=== PATIENT | male | born 1955 | race Caucasian/White ===

== ENCOUNTER 2018-12-19 06:13 | Day surgery (SDC) | payer BC ==
[2018-12-17 13:44] VITALS: BMI 34.8
[2018-12-19] MEDS: CIPROFLOXACIN 0.3% EYE DROPS 5 ML BOTTLE ONE ×3 (07:00→07:10)
[2018-12-19] MEDS: PHENYLEPHRINE 2.5% OPHTH SOLN 15 ML BOTTLE ONE ×3 (07:00→07:10)
[2018-12-19] MEDS: CYCLOPENTOLATE 2% OPHTH SOLN 2 ML BOTTLE ONE ×3 (07:00→07:10)
[2018-12-19] MEDS: TROPICAMIDE 1% OPHTH SOLN 15 ML BOTTLE ONE ×3 (07:00→07:10)
[2018-12-19] MEDS ORDERED: EPINEPHrine/PF 1 MG/1 ML (1:1,000) AMPULE ONE (07:08)
[2018-12-19] MEDS ORDERED: LIDOCAINE 1% P/F 10 MG/ML VIAL ONE (07:08)
[2018-12-19] MEDS ORDERED: TETRACAINE 0.5% OPHTH SOLN 2 ML BOTTLE ONE (07:08)
[2018-12-19] MEDS ORDERED: BSS (NA/CA/MG/K) BALANCED SALT SOLUTION OPHTH SOLN 15 ML BOTTLE ONE (07:08)
[2018-12-19] MEDS ORDERED: NEO/POLYMYX B SULF/DEXAMETH OPHTHALMIC 5ML BOTTLE ONE (07:09)
[2018-12-19] MEDS ORDERED: CARBACHOL 0.01% INTRA-OCULAR 1.5 ML VIAL ONE (07:09)
[2018-12-19] MEDS ORDERED: MIDAZOLAM HCL 2 MG/2 ML SINGLE DOSE VIAL ONE ×2 (07:42→08:22)
[2018-12-19 09:03] VITALS: TEMP 98.2
[2018-12-19 09:27] VITALS: BP 156/85; PULSE 68
--- NOTE | 2018-12-19 11:51 | OP ---
DATE OF OPERATION: 12/19/2018 OPERATIVE PROCEDURE: Lens Phacoemulsification with Posterior Chamber Intraocular Lens Placement, Right Eye PREOPERATIVE DIAGNOSIS: Visually Significant Cataract of Right Eye POSTOPERATIVE DIAGNOSIS: Visually Significant Cataract of Right Eye SURGEON: Michael Morales M.D. ANESTHESIA: MAC PROCEDURE: The patient was brought to the operating room and placed under monitored anesthesia care by Anesthesia. A drop of Tetracaine was then placed over the right eye. The patient was then prepped and draped in the usual sterile manner. A speculum was then placed over the right eye. The eye was then well irrigated with copious amounts of BSS (balanced salt solution). The operating microscope was then moved into position. A paracentesis was performed using a 15 degree blade. At this point 0.5 mL of 1% preservative free-lidocaine was injected into the anterior chamber. Amvisc plus was then injected into the anterior chamber. A clear corneal incision was then formed using a 2.2 mm keratome. A capsulorrhexis was then performed in a continuous circular fashion beginning with a cystotome completed with an Utratas forceps. Hydrodissection was then performed using BSS on a cannula. The phaco probe was then introduced through the corneal wound and the cataract was removed using the phaco chop technique. Approximately 3 seconds of absolute phaco time was used. The remaining cortex was then removed using irrigation and aspiration with an I/A probe. The capsule was then filled with regular Amvisc and the capsule was noted to be intact. A previously selected foldable posterior chamber intraocular lens was then injected into the capsule through the corneal wound using a lens injector. It was then dialed into position using a Sinskey hook. The Amvisc was then removed using irrigation and aspiration. Miostat was then injected through the paracentesis to constrict the pupil. The paracentesis and corneal wound were then hydrated and noted to be water tight. A drop of Maxitrol was then placed over the eye. The speculum was removed and clear shield was taped over the eye. The patient tolerated the procedure well and there were no surgical complications. The patient was asked to follow up in my office the next day. MICHAEL MORALES M.D. LENY/[id number]
== END 2018-12-19 09:15 | disposition home or self-care (01) ==
LOC: FASU 06:13
PROVIDERS: ATTEND Ophthalmology
PROC: 08RJ3JZ Replacement of Right Lens with Synthetic Substitute, Percutaneous Approach (ICD-10-PCS; principal; 2018-12-19 08:21)
DX: H26.8 Other specified cataract (principal)

== ENCOUNTER 2019-07-31 14:18 | Inpatient (IN) | payer OTHER, BC ==
[~2019-07-31 14:18] MED LIST: MAGNESIUM SULF 50% (8.12 MEQ/2 ML-1 GM VIAL) IVPB ONE; POTASSIUM CHLORIDE TABS 20 MEQ TABLET.ER (FP) PO STA
[2019-07-31] MEDS ORDERED: SODIUM CHLORIDE 0.9% 1000 ML INFUS.BAG IV ONE (15:09)
[2019-07-31] MEDS ORDERED: FOLIC ACID INJECTION - 1 MG, THIAMINE HCL 100 MG, MULTIVIT INJECTION ADULT 10 ML in SOD... IVPB ONE (15:09)
--- NOTE | 2019-07-31 15:09 | PDOC ---
History of Present Illness - General Chief Complaint: Jaundice Stated Complaint: JAUNDICE History Source: Patient Exam Limitations: No Limitations - History of Present Illness Initial Comments: 07/31/19 15:04 64 yo male h/o etoh abuse, daily etoh use here with c/o nv now jaundice and shakes. pt states he thought he had the flu over the weekend, was evaluated at urgent care for n/v subjective fevers, chills . last etoh was 5 days ago. has been feeling shaky since. today was seen at [facility] doctors office, noted to be jaundice told to go to ed for evaluation. pt stats had n/v 5 days, ago, then developed loose watery stool. all nonbloody no dark or black stools. no h/o of known cirrhosis, however has been told he has fatty liver in the past. no abd pain, no cough. no sick contact. no other complaints. Past History - Past Medical History Allergies/Adverse Reactions: Allergies Allergy/AdvReac Type Severity Reaction Status Date / Time No Known Allergies Allergy Verified 07/31/19 15:59 Home Medications: Ambulatory Orders Atorvastatin Ca [Lipitor] 10 mg PO DAILY 12/17/18 Nebivolol [Bystolic -] 5 mg PO DAILY 12/17/18 Anemia: No Asthma: No Cancer: No Cardiac Disorders: No CVA: No COPD: No CHF: No Dementia: No Diabetes: No GI Disorders: No Disorders: No HTN: Yes Hypercholesterolemia: Yes Liver Disease: No Seizures: No Thyroid Disease: No - Surgical History Abdominal Surgery: No Appendectomy: No Cardiac Surgery: No Cholecystectomy: No Lung Surgery: No Neurologic Surgery: No Orthopedic Surgery: No - Psycho Social/Smoking Cessation Hx Smoking History: Never smoked Have you smoked in the past 12 months: No Hx Alcohol Use: Yes (5 DRINKS) Drug/Substance Use Hx: Yes (MARIJUANA) Substance Use Type: Alcohol Hx Substance Use Treatment: No Review of Systems - Review of Systems Constitutional: Yes: Chills, Fever HEENTM: No: Eye Pain Respiratory: No: Cough Cardiac (ROS): No: Chest Pain, Irregular Heart Rate ABD/GI: Yes: Diarrhea, Nausea, Vomiting : No: Burning Musculoskeletal: No: Back Pain Neurological: No: Headache, Numbness Psychiatric: No: Stressors All Other Systems: Reviewed and Negative *Physical Exam - Vital Signs Last Vital Signs Temp Pulse Resp BP Pulse Ox 99.2 F 123 H 19 115/87 97 07/31/19 14:20 07/31/19 14:20 07/31/19 14:20 07/31/19 14:20 07/31/19 14:20 - Physical Exam 07/31/19 15:07 awake alert lungs clear bilat heart rrr no mrg abd soft nt nd ext wwp. no edema. slceral icterus jaundice. skin warm and dry. ED Treatment Course - LABORATORY CBC & Chemistry Diagram: 07/31/19 15:18 07/31/19 15:18 Medical Decision Making - Medical Decision Making 07/31/19 15:07 64 yo male h/o etoh abuse here with n/v now diarrhea, and jaundice. differential influenzae, etoh withdrawal, tox , pancreatitis, pancreatic ca, gallbladder pathology, however min tenderness on exam. cirrhosis etoh withdrawal. pt tremulous on exam. will given him ativan now treat withdrawal, ct a/p evaluate abd pain pancreatitis. 07/31/19 16:33 pt with new onset afib with RVR, us gb ordered eval for stones, cholecystitis,noted ascites. ct a/p pending. labs unremarkable except LFT abnormalities elevation. 07/31/19 18:48 pt us with gallbladder wall edema. noted to have ascites and fatty liver. ct a/p results pending. lipase elevated at 600. c/w pancreatitis. pt will be admitted etoh withdrawal. sxs improved with ativan 2 mg ivp. pancreatitis afib with RVR which is new,and improved with tylenol and iv hdyration. trop is negative. Discharge - Discharge Information Problems reviewed: Yes Clinical Impression/Diagnosis: Atrial fibrillation with RVR, Alcohol withdrawal, Ascites, Pancreatitis Condition: Stable - Admission Yes - Follow up/Referral - Patient Discharge Instructions - Post Discharge Activity
[2019-07-31] MEDS ORDERED: LORazepam 2 MG/ML SDV VIAL ONE ×2 (15:24→18:06)
[2019-07-31] MEDS ORDERED: THIAMINE HCL 200 MG/2 ML VIAL ONE (15:30)
[2019-07-31] MEDS ORDERED: FOLIC ACID 5 MG/1 ML ONE (15:31)
[2019-07-31] MEDS ORDERED: MULTIVIT INJ. ADULT COMBO WITH VIT K 1 COMBO 10 ML VIAL IV ONE (15:31)
[2019-07-31 15:54] LABS: HEMATOCRIT 37.7 % (35.4-49); HEMOGLOBIN 12.5 GM/dl (11.7-16.9); MCH 33.4 pg (25.7-33.7); MCHC 33.1 g/dl (32.0-35.9); MEAN CELL VOLUME 100.9 fl (80-96); MEAN PLT VOLUME 13.3 fl (7.5-11.1); PLATELET COUNT 73 K/MM3 (134-434); RBC 3.73 M/mm3 (4.00-5.60); RDW 13.7 % (11.9-15.9); WHITE BLOOD COUNT 6.7 K/mm3 (4.0-10.8)
[2019-07-31 15:56] LABS: BILIRUBIN,DIRECT 2.6 mg/dL (0.0-0.2); BILIRUBIN,TOTAL 5.4 mg/dl (0.2-1); CALCIUM 7.8 mg/dl (8.5-10); CREATININE 1.2 mg/dl (0.55-1.3); POTASSIUM 3.3 mmol/L (3.5-5.1); TOT PROT 6.8 g/dl (6.4-8.2)
[2019-07-31 16:02] LABS: ADD RBC MORPHOLOGY YES
[2019-07-31 16:49] LABS: PLATELET ESTIMATE DECREASED
[2019-07-31] MEDS ORDERED: ACETAMINOPHEN 1000 MG/100 ML VIAL (NON FORMULARY) IVPB ONE (17:04)
[2019-07-31] MEDS ORDERED: ACETAMINOPHEN INJECTION 100 ML IVPB ONE (17:13)
--- NOTE | 2019-07-31 18:07 | HP ---
CHIEF COMPLAINT: Alcohol withdrawal PCP: Dr. Lopez, [facility] Cardiology: Dr. Kamara, [place] Psych: Dr. Shant Mahajan [phone] HISTORY OF PRESENT ILLNESS: 64 year-old male with a PMH significant for HLD, atrial fibrillation not on anticoagulation, and heavy alcohol use, presented to the ED with the katie. Last drink was on 07/25. [place] like he had the flu over the weekend with symptoms of subjective fever and chills. Was seen today at PCP, noted to be jaundiced and directed to the [facility]. Over the past 5 days patient has had episodes of vomiting and diarrhea. He noticed blood in the toilet after having a BM on 07/27 , no other episodes. His PO intake has been down lately, but states he has gained 9 pounds over the past 2-3 weeks. He has lower extremity edema, L>R, which was pronounced over the weekend but is better now. Patient feels his belly is very distended, much more than usual. Denies chest pain, palpitations, SOB, RIVERA, lightheadedness. He denies history of withdrawal seizures. 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 Smoking: never Alcohol: 5 drinks of vodka per day; last drink 07/25 Drugs: occasional marijunana Allergies No Known Allergies Allergy (Verified 07/31/19 15:59) HOME MEDICATIONS: Home Medications Medication Instructions Recorded Atorvastatin Ca [Lipitor] 10 mg PO DAILY 12/17/18 Nebivolol [Bystolic -] 5 mg PO DAILY 12/17/18 REVIEW OF SYSTEMS CONSTITUTIONAL: +fever, chills, loss of appetite, up 9 lbs over 2-3 weeks Absent: fever, chills, diaphoresis, generalized weakness, malaise, loss of appetite, weight change HEENT: Absent: rhinorrhea, nasal congestion, throat pain, throat swelling, difficulty swallowing, mouth swelling, ear pain, eye pain, visual changes CARDIOVASCULAR: +peripheral edema Absent: chest pain, syncope, palpitations, irregular heart rate, lightheadedness , peripheral edema RESPIRATORY: Absent: cough, shortness of breath, dyspnea with exertion, orthopnea, wheezing, stridor, hemoptysis GASTROINTESTINAL: +abdominal distension Absent: abdominal pain, abdominal distension, nausea, vomiting, diarrhea, constipation, melena, hematochezia GENITOURINARY: Absent: dysuria, frequency, urgency, hesitancy, hematuria, flank pain, genital pain MUSCULOSKELETAL: Absent: myalgia, arthralgia, joint swelling, back pain, neck pain SKIN: Absent: rash, itching, pallor HEMATOLOGIC/IMMUNOLOGIC: Absent: easy bleeding, easy bruising, lymphadenopathy, frequent infections ENDOCRINE: Absent: unexplained weight gain, unexplained weight loss, heat intolerance, cold intolerance NEUROLOGIC: +tremors, malaise, anxiety Absent: headache, focal weakness or paresthesias, dizziness, unsteady gait, seizure, mental status changes, bladder or bowel incontinence PSYCHIATRIC: Absent: anxiety, depression, suicidal or homicidal ideation, hallucinations. PHYSICAL EXAMINATION Vital Signs - 24 hr 07/31/19 07/31/19 07/31/19 14:20 15:56 17:21 Temperature 99.2 F Pulse Rate 123 H Pulse Rate [ 109 H 91 H Apical] Respiratory 19 18 19 Rate Blood Pressure 115/87 Blood Pressure 110/90 107/89 [Left Arm] O2 Sat by Pulse 97 99 98 Oximetry (%) GENERAL/NEURO: Awake, alert, and fully oriented; +tremors, +asterixis +anxiety EYES: Pupils equal, round and reactive to light, extraocular movements intact, icteric sclera EARS, NOSE, THROAT: Ears normal, nares patent, oropharynx clear without exudates. Dry mucous membranes. LUNGS: Breath sounds equal, clear to auscultation bilaterally. No wheezes, and no crackles. No accessory muscle use. HEART: Irregular, S1, S2 ABDOMEN: Distended, not tender, normoactive bowel sounds MUSCULOSKELETAL: Normal range of motion at all joints. No bony deformities or tenderness. No CVA tenderness. UPPER EXTREMITIES: 2+ pulses, warm, well-perfused. No cyanosis. No clubbing. No peripheral edema. LOWER EXTREMITIES: 2+ pulses, warm, well-perfused. No calf tenderness. 2+ bilateral edema L>R NEUROLOGICAL: Cranial nerves II-XII intact. Normal speech. Laboratory Results - last 24 hr 07/31/19 07/31/19 07/31/19 15:18 15:18 15:18 WBC 6.7 RBC 3.73 L Hgb 12.5 Hct 37.7 MCV 100.9 H MCH 33.4 MCHC 33.1 RDW 13.7 Plt Count 73 L MPV 13.3 H Absolute Neuts (auto) 5.1 Neutrophils % No Result Required. Neutrophils % (Manual) 85.0 H Lymphocytes % No Result Required. Lymphocytes % (Manual) 8.0 Monocytes % (Manual) 7 Platelet Estimate Decreased Platelet Comment Few large platelets Sodium 134 L Potassium 3.3 L Chloride 95 L Carbon Dioxide 25 Anion Gap 14 BUN 36.0 H Creatinine 1.2 Est GFR (CKD-EPI)AfAm 73.11 Est GFR (CKD-EPI)NonAf 63.08 Random Glucose 99 Calcium 7.8 L Total Bilirubin 5.4 H Direct Bilirubin 2.6 H AST 109 H ALT 52 Alkaline Phosphatase 73 Troponin I Total Protein 6.8 Albumin 4.0 Lipase 570 H Alcohol, Quantitative 07/31/19 07/31/19 15:18 16:45 WBC RBC Hgb Hct MCV MCH MCHC RDW Plt Count MPV Absolute Neuts (auto) Neutrophils % Neutrophils % (Manual) Lymphocytes % Lymphocytes % (Manual) Monocytes % (Manual) Platelet Estimate Platelet Comment Sodium Potassium Chloride Carbon Dioxide Anion Gap BUN Creatinine Est GFR (CKD-EPI)AfAm Est GFR (CKD-EPI)NonAf Random Glucose Calcium Total Bilirubin Direct Bilirubin AST ALT Alkaline Phosphatase Troponin I < 0.03 Total Protein Albumin Lipase Alcohol, Quantitative < 3 ASSESSMENT/PLAN: 64 year-old male with a PMH significant for HLD, atrial fibrillation not on anticoagulation, and heavy alcohol use. Admitted for acute alcohol withdrawal. Acute alcohol withdrawal Elevated ammonia --last drink 5 days ago; tremors, asterixis --has gotten 5mg of ativan so far, started librium taper --telemetry monitoring --monitor closely for signs of respiratory depression --start lactulose when more stable --daily thiamine, folic acid --protonix --IV fluids --lactic acid pending Thrombocytopenia --likely secondary to alcohol abuse Hypokalemia Hypomagnesemia --replete --lytes q4h Hypocalcemia --wait for Mg to correct Atrial fibrillation ECG abnormalities --afib diagnosed 2 years ago, follows with Dr. Kamara --takes bystolic for rate control, continue --never placed on anti-coagulation, [id number] score 1 --ECG: afib @ 99bpm; TWI V1, V2, V3, V4, V5 - no previous for comparison --troponins neg x 2, third pending --ASA 325 x 1; if third troponin neg, will not continue ASA due to high risk of bleeding in this alcoholic patient --Echo in am Hyperbilirubinemia Jaundice Elevated lipase --CTAP: subq soft tissue stranding c/w fluid retention abdomen and pelvis; no ascites noted --US gallbladder: mild diffuse wall thickening, small amount of fluid; CBD unremarkable --mildly elevated lipase, possible early pancreatitis FEN Fluids: NS@50mL/hr Electrolytes: replete as indicated Nutrition: regular diet DVT prophylaxis: subq heparin Dispo: continues to require inpatient care. Full code. Visit type - Emergency Visit Emergency Visit: Yes ED Registration Date: 07/31/19 Care time: The patient presented to the Emergency Department on the above date and was hospitalized for further evaluation of their emergent condition. - New Patient This patient is new to me today: Yes Date on this admission: 08/01/19 - Critical Care Critical Care patient: Yes Total Critical Care Time (in minutes): 120 Critical Care Statement: The care of this patient involved high complexity decision making to prevent further life threatening deterioration of the patient 's condition and/or to evaluate & treat vital organ system(s) failure or risk of failure.
[2019-07-31] MEDS ORDERED: chlordiazePOXIDE HCL 25 MG CAPSULE PO STA (19:20)
[2019-07-31] MEDS ORDERED: chlordiazePOXIDE HCL 25 MG CAPSULE PO PRN (19:20)
[2019-07-31] MEDS ORDERED: SODIUM CHLORIDE 1,000 ML IV SCH (19:30)
[2019-07-31] MEDS ORDERED: POTASSIUM CHLORIDE TABS 20 MEQ TABLET.ER (FP) PO SCH (19:30)
[2019-07-31] MEDS ORDERED: SODIUM CHLORIDE 1,000 ML IV STA (21:44)
[2019-07-31] MEDS ORDERED: LORazepam 2 MG/ML SDV VIAL IVPUSH ONE (21:50)
[2019-07-31] MEDS ORDERED: LORazepam 2 MG/ML SDV VIAL IVPUSH PRN (21:52)
[2019-07-31] MEDS: NEBIVOLOL 5 MG TABLET (FP) PO SCH (22:04)
[2019-07-31] MEDS ORDERED: ASPIRIN 81 MG CHEWABLE TABLETS PO ONE (22:44)
[2019-07-31] MEDS: chlordiazePOXIDE HCL 25 MG CAPSULE PO SCH (23:03)
[2019-07-31] MEDS ORDERED: PANTOPRAZOLE 40 MG TABLET PO STA (23:34)
[2019-07-31 23:35] LABS: CREATININE 1.1 mg/dl (0.55-1.3); POTASSIUM 3.2 mmol/L (3.5-5.1)
[2019-07-31 23:36] LABS: CALCIUM 6.9 mg/dl (8.5-10)
[2019-08-01] MEDS ORDERED: SODIUM CHLORIDE 1,000 ML IV SCH (00:06)
[2019-08-01 03:33] LABS: URINE APPEARANCE HAZY; URINE COLOR YELLOW
[2019-08-01 03:34] LABS: URINE BILIRUBIN NEGATIVE (NEGATIVE); URINE GLUCOSE (UA) 0 (NEGATIVE); URINE KETONE NEGATIVE (NEGATIVE); URINE PROTEIN NEGATIVE (NEGATIVE); URINE UROBILINOGEN NORMAL mg/dL (0.2-1.0)
[2019-08-01 03:35] LABS: URINE LEUK ESTERASE NEGATIVE (NEGATIVE); URINE NITRITE NEGATIVE (NEGATIVE); URINE RBC 63.5 /hpf (0-4)
[2019-08-01 03:36] LABS: EPI CELLS 3.7 /HPF (0-5/HPF); HYALINE CASTS 8.96 /lpf (0-8); URINE BACTERIA 3402.8 /hpf (NEGATIVE)
[2019-08-01 03:57] VITALS: BMI 35.0
[2019-08-01 05:06] LABS: BLOOD UREA NITROGEN 34.8 mg/dL (7-18); CALCIUM 7.1 mg/dL (8.5-10.1); CREATININE 1.1 mg/dL (0.55-1.3); MAGNESIUM 1.5 mg/dL (1.8-2.4); POTASSIUM 3.5 mmol/L (3.5-5.1)
[2019-08-01] MEDS: chlordiazePOXIDE HCL 25 MG CAPSULE PO SCH ×2 (05:30→10:30)
[2019-08-01] MEDS ORDERED: POTASSIUM CHLORIDE TABS 20 MEQ TABLET.ER (FP) PO ONE (06:00)
[2019-08-01] MEDS ORDERED: HEPARIN NA (PORCINE) 5,000 UNITS/ML 1ML VIAL SQ SCH (06:00)
[2019-08-01] MEDS ORDERED: POTASSIUM CHLORIDE TABS 20 MEQ TABLET.ER (FP) PO SCH (06:00)
[2019-08-01] MEDS ORDERED: MAGNESIUM SULF 50% (8.12 MEQ/2 ML-1 GM VIAL) IVPB ONE ×2 (08:17→08:46)
[2019-08-01 08:25] LABS: ACTIVATED PTT 25.8 SECONDS (25.2-36.5); ALBUMIN 3.4 g/dl (3.4-5.0); BILIRUBIN,TOTAL 4.4 mg/dl (0.2-1); CALCIUM 7.2 mg/dl (8.5-10); CREATININE 1.1 mg/dl (0.55-1.3); INR 1.65 (0.82-1.09); MAGNESIUM 1.5 mg/dL (1.8-2.4); PHOSPHOROUS 4.7 mg/dl (2.5-4.9); PROTHROMBIN TIME (PATIENT) 18.3 SEC (10.2-13.0); TOT PROT 5.9 g/dl (6.4-8.2)
[2019-08-01 08:29] LABS: HEMATOCRIT 34.9 % (35.4-49); MCHC 34.5 g/dl (32.0-35.9); MEAN CELL VOLUME 101.3 fl (80-96); MEAN PLT VOLUME 10.4 fl (7.5-11.1); PLATELET COUNT 46 K/MM3 (134-434); RDW 13.7 % (11.9-15.9); WHITE BLOOD COUNT 5.1 K/mm3 (4.0-10.8)
[2019-08-01] MEDS ORDERED: MAGNESIUM SULFATE IN WATER 2 GM/50 ML IVPB IVPB ONE (08:45)
[2019-08-01 08:47] LABS: HEMOGLOBIN 12.1 GM/dl (11.7-16.9); RBC 3.45 M/mm3 (4.00-5.60)
[2019-08-01 09:49] VITALS: BP 130/107; PULSE 135; TEMP 97.8
[2019-08-01 10:00] LABS: N-TERMINAL BNP 3718.8 pg/ml (5-125)
[2019-08-01] MEDS ORDERED: PANTOPRAZOLE 40 MG TABLET PO SCH (10:00)
[2019-08-01] MEDS ORDERED: FOLIC ACID 1 MG TABLET (FP) PO SCH (10:00)
[2019-08-01] MEDS ORDERED: THIAMINE HCL 100 MG TABLET (FP) PO SCH (10:00)
[2019-08-01 10:06] LABS: ANISOCYTOSIS 1+
[2019-08-01 10:08] LABS: PLATELET ESTIMATE MOD DECREASED
[2019-08-01] MEDS: NEBIVOLOL 5 MG TABLET (FP) PO SCH (10:08)
--- NOTE | 2019-08-01 11:32 | DS ---
Physical Exam: SUBJECTIVE: Patient seen and examined OBJECTIVE: Vital Signs Period Temp Pulse Resp BP Sys/Day Pulse Ox Last 24 Hr 97.3 F-99.2 F 91-135 18-20 107-130/83-107 96-99 PHYSICAL EXAM GENERAL: The patient is awake, alert, and fully oriented, in no acute distress. HEAD: Normal with no signs of trauma. EYES: PERRL, extraocular movements intact, sclera anicteric, conjunctiva clear. ENT: Ears normal, nares patent, oropharynx clear without exudates, moist mucous membranes. NECK: Trachea midline, full range of motion, supple. LUNGS: Breath sounds equal, clear to auscultation bilaterally, no wheezes, no crackles, no accessory muscle use. HEART: Regular rate and rhythm, S1, S2 without murmur, rub or gallop. ABDOMEN: Soft, nontender, nondistended, normoactive bowel sounds, no guarding, no rebound, no hepatosplenomegaly, no masses. EXTREMITIES: 2+ pulses, warm, well-perfused, no edema. NEUROLOGICAL: Cranial nerves II through XII grossly intact. Normal speech, gait not observed. PSYCH: Normal mood, normal affect. SKIN: Warm, dry, normal turgor, no rashes or lesions noted. LABS Laboratory Results - last 24 hr 07/31/19 07/31/19 07/31/19 15:18 15:18 15:18 WBC 6.7 RBC 3.73 L Hgb 12.5 Hct 37.7 MCV 100.9 H MCH 33.4 MCHC 33.1 RDW 13.7 Plt Count 73 L MPV 13.3 H Absolute Neuts (auto) 5.1 Neutrophils % No Result Required. Neutrophils % (Manual) 85.0 H Lymphocytes % No Result Required. Lymphocytes % (Manual) 8.0 Monocytes % (Manual) 7 Hypochromia Platelet Estimate Decreased Platelet Comment Few large platelets Anisocytosis PT with INR INR PTT (Actin FS) Sodium 134 L Potassium 3.3 L Chloride 95 L Carbon Dioxide 25 Anion Gap 14 BUN 36.0 H Creatinine 1.2 Est GFR (CKD-EPI)AfAm 73.11 Est GFR (CKD-EPI)NonAf 63.08 Random Glucose 99 Lactic Acid Calcium 7.8 L Phosphorus Magnesium Total Bilirubin 5.4 H Direct Bilirubin 2.6 H AST 109 H ALT 52 Alkaline Phosphatase 73 Ammonia 72.90 H Creatine Kinase Creatine Kinase Index CK-MB (CK-2) Troponin I B-Natriuretic Peptide Total Protein 6.8 Albumin 4.0 Lipase TSH Urine Color Urine Appearance Urine pH Ur Specific [place] Urine Protein Urine Glucose (UA) Urine Ketones Urine Blood Urine Nitrite Urine Bilirubin Urine Urobilinogen Ur Leukocyte Esterase Urine WBC (Auto) Urine RBC (Auto) Urine Casts (Auto) U Epithel Cells (Auto) Urine Bacteria (Auto) Alcohol, Quantitative Influenza A (Rapid) Influenza B (Rapid) 07/31/19 07/31/19 07/31/19 15:18 15:18 16:45 WBC RBC Hgb Hct MCV MCH MCHC RDW Plt Count MPV Absolute Neuts (auto) Neutrophils % Neutrophils % (Manual) Lymphocytes % Lymphocytes % (Manual) Monocytes % (Manual) Hypochromia Platelet Estimate Platelet Comment Anisocytosis PT with INR INR PTT (Actin FS) Sodium Potassium Chloride Carbon Dioxide Anion Gap BUN Creatinine Est GFR (CKD-EPI)AfAm Est GFR (CKD-EPI)NonAf Random Glucose Lactic Acid Calcium Phosphorus Magnesium Total Bilirubin Direct Bilirubin AST ALT Alkaline Phosphatase Ammonia Creatine Kinase Creatine Kinase Index CK-MB (CK-2) Troponin I < 0.03 B-Natriuretic Peptide Total Protein Albumin Lipase 570 H TSH Urine Color Urine Appearance Urine pH Ur Specific [place] Urine Protein Urine Glucose (UA) Urine Ketones Urine Blood Urine Nitrite Urine Bilirubin Urine Urobilinogen Ur Leukocyte Esterase Urine WBC (Auto) Urine RBC (Auto) Urine Casts (Auto) U Epithel Cells (Auto) Urine Bacteria (Auto) Alcohol, Quantitative < 3 Influenza A (Rapid) Influenza B (Rapid) 07/31/19 07/31/19 07/31/19 17:12 23:05 23:05 WBC RBC Hgb Hct MCV MCH MCHC RDW Plt Count MPV Absolute Neuts (auto) Neutrophils % Neutrophils % (Manual) Lymphocytes % Lymphocytes % (Manual) Monocytes % (Manual) Hypochromia Platelet Estimate Platelet Comment Anisocytosis PT with INR INR PTT (Actin FS) Sodium 136 Potassium 3.2 L Chloride 101 Carbon Dioxide 24 Anion Gap 11 BUN 33.0 H Creatinine 1.1 Est GFR (CKD-EPI)AfAm 81.22 Est GFR (CKD-EPI)NonAf 70.07 Random Glucose 82 Lactic Acid Calcium 6.9 L* Phosphorus Magnesium 1.0 L Total Bilirubin Direct Bilirubin AST ALT Alkaline Phosphatase Ammonia Creatine Kinase Creatine Kinase Index CK-MB (CK-2) Troponin I < 0.03 B-Natriuretic Peptide Total Protein Albumin Lipase TSH Urine Color Urine Appearance Urine pH Ur Specific [place] Urine Protein Urine Glucose (UA) Urine Ketones Urine Blood Urine Nitrite Urine Bilirubin Urine Urobilinogen Ur Leukocyte Esterase Urine WBC (Auto) Urine RBC (Auto) Urine Casts (Auto) U Epithel Cells (Auto) Urine Bacteria (Auto) Alcohol, Quantitative Influenza A (Rapid) Negative Influenza B (Rapid) Negative 07/31/19 08/01/19 08/01/19 23:05 00:40 00:45 WBC RBC Hgb Hct MCV MCH MCHC RDW Plt Count MPV Absolute Neuts (auto) Neutrophils % Neutrophils % (Manual) Lymphocytes % Lymphocytes % (Manual) Monocytes % (Manual) Hypochromia Platelet Estimate Platelet Comment Anisocytosis PT with INR INR PTT (Actin FS) Sodium Potassium Chloride Carbon Dioxide Anion Gap BUN Creatinine Est GFR (CKD-EPI)AfAm Est GFR (CKD-EPI)NonAf Random Glucose Lactic Acid 1.5 Calcium Phosphorus Magnesium Total Bilirubin Direct Bilirubin AST ALT Alkaline Phosphatase Ammonia Creatine Kinase 267 Creatine Kinase Index 0.6 CK-MB (CK-2) 1.8 Troponin I B-Natriuretic Peptide Total Protein Albumin Lipase TSH Urine Color Cancelled Urine Appearance Cancelled Urine pH Cancelled Ur Specific [place] Urine Protein Cancelled Urine Glucose (UA) Cancelled Urine Ketones Cancelled Urine Blood Cancelled Urine Nitrite Cancelled Urine Bilirubin Cancelled Urine Urobilinogen Cancelled Ur Leukocyte Esterase Cancelled Urine WBC (Auto) Urine RBC (Auto) Urine Casts (Auto) U Epithel Cells (Auto) Urine Bacteria (Auto) Alcohol, Quantitative Influenza A (Rapid) Influenza B (Rapid) 08/01/19 08/01/19 08/01/19 00:45 03:00 07:29 WBC 5.1 RBC 3.45 L Hgb 12.1 Hct 34.9 L MCV 101.3 H MCH 35.0 H MCHC 34.5 RDW 13.7 Plt Count 46 L D MPV 10.4 D Absolute Neuts (auto) 3.2 Neutrophils % No Result Required. Neutrophils % (Manual) 66.0 Lymphocytes % No Result Required. Lymphocytes % (Manual) 24.0 D Monocytes % (Manual) 10 Hypochromia 1+ Platelet Estimate Mod decreased Platelet Comment Rare giant plts Anisocytosis 1+ PT with INR INR PTT (Actin FS) Sodium 142 Potassium 3.5 Chloride 105 Carbon Dioxide 23 Anion Gap 15 BUN 34.8 H Creatinine 1.1 Est GFR (CKD-EPI)AfAm 81.22 Est GFR (CKD-EPI)NonAf 70.07 Random Glucose 70 L Lactic Acid Calcium 7.1 L Phosphorus Magnesium 1.5 L Total Bilirubin Direct Bilirubin AST ALT Alkaline Phosphatase Ammonia Creatine Kinase Creatine Kinase Index CK-MB (CK-2) Troponin I B-Natriuretic Peptide Total Protein Albumin Lipase TSH Urine Color Yellow Urine Appearance Hazy Urine pH 6.0 Ur Specific [place] 1.025 Urine Protein Negative Urine Glucose (UA) 0 Urine Ketones Negative Urine Blood 1+ H Urine Nitrite Negative Urine Bilirubin Negative Urine Urobilinogen Normal Ur Leukocyte Esterase Negative Urine WBC (Auto) 9.0 Urine RBC (Auto) 63.5 Urine Casts (Auto) 8.96 U Epithel Cells (Auto) 3.7 Urine Bacteria (Auto) 3402.8 Alcohol, Quantitative Influenza A (Rapid) Influenza B (Rapid) 08/01/19 08/01/19 07:29 07:29 WBC RBC Hgb Hct MCV MCH MCHC RDW Plt Count MPV Absolute Neuts (auto) Neutrophils % Neutrophils % (Manual) Lymphocytes % Lymphocytes % (Manual) Monocytes % (Manual) Hypochromia Platelet Estimate Platelet Comment Anisocytosis PT with INR 18.3 H INR 1.65 H PTT (Actin FS) 25.8 Sodium 138 Potassium 4.0 Chloride 105 Carbon Dioxide 22 Anion Gap 11 BUN 32.0 H Creatinine 1.1 Est GFR (CKD-EPI)AfAm 81.22 Est GFR (CKD-EPI)NonAf 70.07 Random Glucose 80 Lactic Acid Calcium 7.2 L Phosphorus 4.7 Magnesium 1.5 L Total Bilirubin 4.4 H Direct Bilirubin AST 99 H ALT 47 Alkaline Phosphatase 68 Ammonia Creatine Kinase Creatine Kinase Index CK-MB (CK-2) Troponin I B-Natriuretic Peptide 3718.8 H Total Protein 5.9 L Albumin 3.4 Lipase 497 H TSH 1.93 Urine Color Urine Appearance Urine pH Ur Specific [place] Urine Protein Urine Glucose (UA) Urine Ketones Urine Blood Urine Nitrite Urine Bilirubin Urine Urobilinogen Ur Leukocyte Esterase Urine WBC (Auto) Urine RBC (Auto) Urine Casts (Auto) U Epithel Cells (Auto) Urine Bacteria (Auto) Alcohol, Quantitative Influenza A (Rapid) Influenza B (Rapid) HOSPITAL COURSE: Date of Admission:07/31/19 Date of AMA: 08/01/19 Pre hospital course 64 year-old male with a PMH significant for HLD, atrial fibrillation not on anticoagulation, and heavy alcohol use, presented to the ED with the katie. Last drink was on 07/25. [place] like he had the flu over the weekend with symptoms of subjective fever and chills. Was seen today at PCP, noted to be jaundiced and directed to the [facility]. Over the past 5 days patient has had episodes of vomiting and diarrhea. He noticed blood in the toilet after having a BM on 07/27 , no other episodes. His PO intake has been down lately, but states he has gained 9 pounds over the past 2-3 weeks. He has lower extremity edema, L>R, which was pronounced over the weekend but is better now. Patient feels his belly is very distended, much more than usual. Denies chest pain, palpitations, SOB, RIVERA, lightheadedness. He denies history of withdrawal seizures. ER course (1) Platelets 73k (2) Total bili 5.4, direct bili 2.6, AST 109 (3) Lipase 570 (4) K 3.3 (5) troponin neg x 1 Subsequent hospital course 64 year-old male with a PMH significant for HLD, atrial fibrillation not on anticoagulation, and heavy alcohol use. Admitted for acute alcohol withdrawal. Acute alcohol withdrawal Elevated ammonia --last drink 5 days ago; tremors, asterixis --has gotten 5mg of ativan so far, started librium taper --telemetry monitoring --monitor closely for signs of respiratory depression --daily thiamine, folic acid --protonix --IV fluids --lactic acid wnl Thrombocytopenia --likely secondary to alcohol abuse Hypokalemia Hypomagnesemia --replete --lytes q4h Hypocalcemia --wait for Mg to correct Atrial fibrillation ECG abnormalities --afib diagnosed 2 years ago, follows with Dr. Kamara --takes bystolic for rate control, continue --never placed on anti-coagulation, [id number] score 1 --ECG: afib @ 99bpm; TWI V1, V2, V3, V4, V5 - no previous for comparison --troponins neg x 2, third pending --ASA 325 x 1; if third troponin neg, will not continue ASA due to high risk of bleeding in this alcoholic patient --Echo in am Hyperbilirubinemia Jaundice Elevated lipase --CTAP: subq soft tissue stranding c/w fluid retention abdomen and pelvis; no ascites noted --US gallbladder: mild diffuse wall thickening, small amount of fluid; CBD unremarkable --mildly elevated lipase, possible early pancreatitis FEN Fluids: NS@50mL/hr Electrolytes: replete as indicated Nutrition: regular diet DVT prophylaxis: subq heparin Dispo: this morning patient advised he wished to sign out AMA. hospital tray service worker Gracia Thakkar and this provider spent more than 20 minutes speaking with patient and advising him of the grave risk of signing out, including alcohol- related seizures, respiratory arrest, cardiac arrythmias, and . The patient was fully oriented and competent to make medical decisions on his behalf. With the patient's permission, the nursing staff reached out to his significant other who came to the hospital and also tried to talk the patient out of signing out AMA. All efforts at persuasion were unsuccessful and the patient signed out against medical advice. Minutes to complete discharge: 35 Discharge Summary Problems reviewed: Yes Reason For Visit: JAUNDICE,ALCOHOL WITHDRAWAL SYNDROME Current Active Problems Alcohol withdrawal (Acute) Ascites (Acute) Atrial fibrillation with RVR (Acute) Pancreatitis (Acute) Condition: Guarded - Instructions Disposition: AGAINST MEDICAL ADVICE - Home Medications Comprehensive Discharge Medication List: Ambulatory Orders Atorvastatin Ca [Lipitor] 10 mg PO DAILY 12/17/18 Nebivolol [Bystolic -] 5 mg PO DAILY 12/17/18 This patient is new to me today: No Emergency Visit: Yes ED Registration Date: 07/31/19 Care time: The patient presented to the Emergency Department on the above date and was hospitalized for further evaluation of their emergent condition. Critical Care patient: Yes Total Critical Care Time (in minutes): 45 Critical Care Statement: The care of this patient involved high complexity decision making to prevent further life threatening deterioration of the patient 's condition and/or to evaluate & treat vital organ system(s) failure or risk of failure. - Discharge Referral Referred to [facility] No
--- NOTE | 2019-08-01 12:43 | EKG ---
Test Reason : Blood Pressure : / mmHG Vent. Rate : 113 BPM Atrial Rate : 122 BPM P-R Int : 000 ms QRS Dur : 136 ms QT Int : 298 ms P-R-T Axes : 000 -27 -12 degrees QTc Int : 408 ms ATRIAL FIBRILLATION WITH RAPID VENTRICULAR RESPONSE WITH PREMATURE VENTRICULAR OR ABERRANTLY CONDUCTED COMPLEXES RIGHT BUNDLE BRANCH BLOCK INFERIOR INFARCT , AGE UNDETERMINED ABNORMAL ECG NO PREVIOUS ECGS AVAILABLE Confirmed by JULY JONES MD ([id number]) on 08/01/2019 12:42:36 PM Referred By: ROBERT GRAVES Confirmed By:JULY JONES MD
[2019-08-01] MEDS ORDERED: ATORVASTATIN CA 10 MG TABLET (FP) PO SCH (22:00)
[2019-08-02] MEDS ORDERED: chlordiazePOXIDE HCL 25 MG CAPSULE PO SCH (05:00)
[2019-08-03] MEDS ORDERED: chlordiazePOXIDE HCL 10 MG CAPSULE PO PRN
[2019-08-03] MEDS ORDERED: chlordiazePOXIDE HCL 10 MG CAPSULE PO SCH (05:00)
--- NOTE | 2019-08-03 16:26 | EKG ---
Test Reason : Blood Pressure : / mmHG Vent. Rate : 099 BPM Atrial Rate : 086 BPM P-R Int : 000 ms QRS Dur : 138 ms QT Int : 372 ms P-R-T Axes : 000 -05 -22 degrees QTc Int : 477 ms ATRIAL FIBRILLATION WITH PREMATURE VENTRICULAR OR ABERRANTLY CONDUCTED COMPLEXES RIGHT BUNDLE BRANCH BLOCK ANTEROSEPTAL INFARCT INFERIOR INFARCT (CITED ON OR BEFORE 31-JUL-2019) ABNORMAL ECG Confirmed by MD GENESIS, CHRISTINA ([id number]) on 08/03/2019 4:26:04 PM Referred By: Confirmed By:CHRISTINA HURTADO MD
[2019-08-04] MEDS ORDERED: chlordiazePOXIDE HCL 10 MG CAPSULE PO SCH (05:00)
[2019-08-05] MEDS ORDERED: chlordiazePOXIDE HCL 10 MG CAPSULE PO ONE (05:00)
== END 2019-08-01 11:15 | disposition left against medical advice (07) | DRG 439 ==
LOC: FER 14:18 → UNDOADMIN 20:18 → FM/S 20:18
PROVIDERS: ADMIT Internal Medicine; ATTEND Nurse Practitioner Acute Care
DX: K85.90 Acute pancreatitis without necrosis or infection, unspecified (principal); F10.239 Alcohol dependence with withdrawal, unspecified; R17 Unspecified jaundice; R18.8 Other ascites; D69.6 Thrombocytopenia, unspecified; E83.42 Hypomagnesemia; E83.51 Hypocalcemia; E87.6 Hypokalemia; E80.6 Other disorders of bilirubin metabolism; E78.5 Hyperlipidemia, unspecified; I48.91 Unspecified atrial fibrillation; K76.0 Fatty (change of) liver, not elsewhere classified
CPT/HCPCS: 36415; 71046-TC-FY; 74177-TC; 76705-TC; 80048; 80053; 80307; 81003; 82140; 82248; 82550; 82553; 83605; 83690; 83735; 83880; 84100; 84443; 84484; 85025; 85610; 85730; 87804; 93005; 99285-25; J0131; J1644; J7030; Q9967

== ENCOUNTER 2020-03-25 06:53 | Day surgery (SDC) | payer OTHER, BC ==
[2020-03-23 17:46] VITALS: BMI 32.7
--- OUTSIDE RECORDS SUMMARY | 2020-03-25 06:57 | XMS ---
:1955 Author Organization [facility] Support Name Relationship Address Phone RE, RETIRED Unavailable Unavailable Unavailable RE Unavailable Unavailable Unavailable [facility] Unavailable [address] [place] [address] ERIN LOPEZ PARTNER [address] [place] [address] ERIN LOPEZ Other [address] [place] [address] Re-disclosure Warning The records that you are about to access may contain information from federally- assisted alcohol or drug abuse programs. If such information is present, then the following federally mandated warning applies: This information has been disclosed to you from records protected by federal confidentiality rules (42 CFR part 2). The federal rules prohibit you from making any further disclosure of this information unless further disclosure is expressly permitted by the written consent of the person to whom it pertains or as otherwise permitted by 42 CFR part 2. A general authorization for the release of medical or other information is NOT sufficient for this purpose. The Federal rules restrict any use of the information to criminally investigate or prosecute any alcohol or drug abuse patient.The records that you are about to access may contain highly sensitive health information, the redisclosure of which is protected by Article 27-F of the [facility] Public Health law. If you continue you may haveaccess to information: Regarding HIV / AIDS; Provided by facilities licensed or operated by the [facility] Office of Mental Health; or Provided by the [facility] Office for People With Developmental Disabilities. If such information is present, then the following [facility] mandated warning applies: This information has been disclosed to you from confidential records which are protected by state law. State law prohibits you from making any further disclosure of this information without the specific written consent of the person to whom it pertains, or as otherwise permitted by law. Any unauthorized further disclosure in violation of state law may result in a fine or correction sentence or both. A general authorization for the release of medical or other information is NOT sufficient authorization for further disclosure. Insurance Providers Payer name Policy type Policy ID Covered Covered republican's Policy P rocio / Coverage republican ID relationship to Keys Inf ormation type keys BC PPO [id number] SP [id number] MEDICARE [id number] SP [id number] MEDICARE [id number] SP [id number] BC PPO [id number] SP [id number] Results ID Date Data Source [id number] 03/21/2020 12:00:00 PM EDT [facility] Name Value Range Interpretation Description Data Sup porting Code Source(s) Document(s ) SARS [facility] coronavirus 2 RNA This lab was ordered by CARLI jay [facility] and reported by [facility]. ID Date Data Source [id number] 03/10/2020 11:03:00 AM EDT [facility] Name Value Range Interpretation Description Data Sup porting Code Source(s) Document(s ) SARS-CoV-2 [facility] (COVID-19) RNA panel - Unspecified specimen by JOEY with probe detection This lab was ordered by Cipriano WOODWARD and reported by [facility]. ID Date Data Source [id number] 10/20/2019 09:30:00 PM EDT [facility] Name Value Range Interpretation Description Data Sup porting Code Source(s) Document(s ) SARS [facility] CORONAVIRUS 2 RNA This lab was ordered by CARLI HAYNES and reported by [facility]. Procedure
[2020-03-25] MEDS ORDERED: BSS (NA/CA/MG/K) BALANCED SALT SOLUTION OPHTH SOLN 15 ML BOTTLE ONE (07:14)
[2020-03-25] MEDS ORDERED: CARBACHOL 0.01% INTRA-OCULAR 1.5 ML VIAL ONE (07:14)
[2020-03-25] MEDS ORDERED: LIDOCAINE 1% P/F 10 MG/ML VIAL ONE (07:14)
[2020-03-25] MEDS ORDERED: NEO/POLYMYX B SULF/DEXAMETH OPHTHALMIC 5ML BOTTLE ONE (07:14)
[2020-03-25] MEDS ORDERED: TETRACAINE 0.5% OPHTH SOLN 2 ML BOTTLE ONE (07:14)
[2020-03-25] MEDS: TROPICAMIDE 1% OPHTH SOLN 15 ML BOTTLE ONE ×3 (07:45→07:55)
[2020-03-25] MEDS: CIPROFLOXACIN 0.3% EYE DROPS 5 ML BOTTLE ONE ×3 (07:45→07:55)
[2020-03-25] MEDS: CYCLOPENTOLATE 2% OPHTH SOLN 2 ML BOTTLE ONE ×3 (07:45→07:55)
[2020-03-25] MEDS: PHENYLEPHRINE 2.5% OPHTH SOLN 15 ML BOTTLE ONE ×3 (07:45→07:55)
[2020-03-25] MEDS ORDERED: MIDAZOLAM HCL 2 MG/2 ML SINGLE DOSE VIAL ONE (08:38)
[2020-03-25 09:36] VITALS: BP 129/71; PULSE 58; TEMP 98
--- NOTE | 2020-03-26 10:47 | OP ---
DATE OF OPERATION: 03/25/2020 OPERATIVE PROCEDURE: Lens phacoemulsification with posterior chamber intraocular lens placement left eye. PREOPERATIVE DIAGNOSIS: Visually significant cataract of left eye. POSTOPERATIVE DIAGNOSIS: Visually significant cataract of left eye. SURGEON: Michael Morales M.D. ANESTHESIA: MAC PROCEDURE: The patient was brought to the operating room and placed under monitored anesthesia care by Anesthesia. A drop of tetracaine was then placed over the left eye. The patient was then prepped and draped in the usual sterile manner. A speculum was then placed over the left eye. The eye was then well irrigated with copious amounts of BSS (balanced salt solution). The operating microscope was then moved into position. A paracentesis was performed using a 15-degree blade. At this point 0.5 mL of 1% preservative-free lidocaine was injected into the anterior chamber. Amvisc Plus was then injected into the anterior chamber. A clear corneal incision was then formed using a 2.2 mm keratome. A capsulorrhexis was then performed in a continuous circular fashion beginning with a cystotome, completed with a Utrata forceps. Hydrodissection was then performed using BSS on a cannula. The phaco probe was then introduced through the corneal wound and the cataract was removed using the phaco chop technique. Approximately 3 seconds of absolute phaco time was used. The remaining cortex was then removed using irrigation and aspiration with an I/A probe. The capsule was then filled with regular Amvisc and the capsule was noted to be intact. A previously selected foldable posterior chamber intraocular lens was then injected into the capsule through the corneal wound using a lens injector. It was then dialed into position using a Sinskey hook. The Amvisc was then removed using irrigation and aspiration. Miostat was then injected through the paracentesis to constrict the pupil. The paracentesis and corneal wound were then hydrated and noted to be watertight. A drop of Maxitrol was then placed over the eye. The speculum was removed and clear shield was taped over the eye. The patient tolerated the procedure well and there were no surgical complications. The patient was asked to follow up in my office the next day. MICHAEL MORALES M.D. LENY/[id number]
== END 2020-03-25 09:39 | disposition home or self-care (01) ==
LOC: FASU 06:53
PROVIDERS: ATTEND Ophthalmology
PROC: 08RK3JZ Replacement of Left Lens with Synthetic Substitute, Percutaneous Approach (ICD-10-PCS; principal; 2020-03-25 08:44)
DX: H26.8 Other specified cataract (principal)